=== PATIENT | female | born 1970 | race American Indian/Alaskan Native ===

== ENCOUNTER 2019-04-17 02:16 | Emergency (ER) | payer OTHER ==
[2019-04-17 02:28] VITALS: BP 146/71
[2019-04-17 03:21] LABS: Basophils # (Auto) 0.1 K/mm3 (0.0-0.1); Basophils % (Auto) 1.5 % (0.0-1.8); Eosinophils % (Auto) 0.5 % (0.0-4.3); Hematocrit 34.1 % (30.3-42.9); Hemoglobin 12.1 gm/dl (10.1-14.3); Lymphocytes # (Auto) 1.2 K/mm3 (1.2-5.4); Lymphocytes % (Auto) 25.9 % (13.4-35.0); Mean Corpuscular HGB Conc 36 % (30-34); Mean Corpuscular Volume 80 fl (79-97); Monocytes # (Auto) 0.4 K/mm3 (0.0-0.8); Monocytes % (Auto) 7.8 % (0.0-7.3); Platelet Count 280 K/mm3 (140-440); Red Blood Count 4.27 M/mm3 (3.65-5.03); Red Cell Distribution Width 13.8 % (13.2-15.2)
[2019-04-17 03:34] LABS: Alanine Aminotransferase 12 units/L (7-56); Albumin 3.9 g/dL (3.9-5); BUN/Creatinine Ratio 10; Blood Urea Nitrogen 9 mg/dL (7-17); Calcium 9.2 mg/dL (8.4-10.2); Hemolysis Index 23
[2019-04-17 04:35] LABS: Bilirubin,Urine NEG (Negative); Blood,Urine NEG (Negative); Color,Urine Yellow (Yellow); Mucus,Urine 2+ /HPF; Protein,Urine <15 mg/dL mg/dL (Negative)
--- NOTE | 2019-04-17 08:00 | Emergency Department Report ---
ED Abdominal Pain HPI - General Chief Complaint: Abdominal Pain Stated Complaint: RT SIDE PAIN Time Seen by Provider: 04/17/19 07:37 Source: patient Mode of arrival: Ambulatory Limitations: No Limitations - History of Present Illness Initial Comments: This is a 48-year-old -[place]one[place] female who presents to the emergency room with right flank pain since 1600 yesterday. Past medical history of diabetes type 2, epilepsy, and hypertension. Patient reports right flank pain is worse with inhalation. She denies recent injury, chills, urinary frequency, urgency, dysuria, vaginal discharge, nausea, vomiting, and diarrhea. MD Complaint: flank pain (right) Onset/Timin -: days(s) Location: R flank Radiation: none Migration to: no migration Severity scale (0 -10): 7 Quality: stabbing Consistency: intermittent Improves With: nothing Worsens With: movement, other (inhalation) Associated Symptoms: denies other symptoms - Related Data Previous Rx's Medication Instructions Recorded Last Taken Type glyBURIDE/METFORMIN HCL 1 tab PO BID #60 tablet 02/17/13 11/05/14 Rx [Glucovance 5-500 mg] HYDROcodone/APAP 5-325 [[place] 1 each PO Q6HR PRN #12 tablet 11/06/14 Unknown Rx 5/325] Penicillin Vk [Veetids TAB] 500 mg PO QID #40 tablet 11/06/14 Unknown Rx traMADoL [Ultram 50 MG tab] 50 mg PO Q6HR PRN #15 tablet 06/29/15 Unknown Rx Allergies Allergy/AdvReac Type Severity Reaction Status Date / Time No Known Allergies Allergy Verified 02/16/13 17:48 ED Review of Systems ROS: Stated complaint: RT SIDE PAIN Other details as noted in HPI Constitutional: denies: chills, fever Respiratory: denies: cough, shortness of breath, wheezing Cardiovascular: denies: chest pain, palpitations Gastrointestinal: denies: nausea, vomiting, diarrhea Musculoskeletal: back pain (right flank pain). denies: joint swelling, arthralgia Skin: denies: rash, lesions Neurological: denies: headache, weakness, paresthesias Psychiatric: denies: anxiety, depression ED Past Medical Hx - Past Medical History Previous Medical History?: Yes Hx Hypertension: Yes Hx Diabetes: Yes Hx Headaches / Migraines: Yes Hx Seizures: Yes (as a child) - Surgical History Past Surgical History?: Yes Additional Surgical History: partial Hysterectomy 2005 - Social History Smoking Status: Never Smoker Substance Use Type: Alcohol - Medications Home Medications: Home Medications Medication Instructions Recorded Confirmed Last Taken Type glyBURIDE/METFORMIN HCL 1 tab PO BID #60 tablet 02/17/13 11/05/14 11/05/14 Rx [Glucovance 5-500 mg] HYDROcodone/APAP 5-325 [[place] 1 each PO Q6HR PRN #12 tablet 11/06/14 Unknown Rx 5/325] Penicillin Vk [Veetids TAB] 500 mg PO QID #40 tablet 11/06/14 Unknown Rx traMADoL [Ultram 50 MG tab] 50 mg PO Q6HR PRN #15 tablet 06/29/15 Unknown Rx ED Physical Exam - General Limitations: No Limitations General appearance: alert, in no apparent distress, obese - Respiratory Respiratory exam: Present: normal lung sounds bilaterally. Absent: respiratory distress - Cardiovascular Cardiovascular Exam: Present: regular rate, normal rhythm. Absent: systolic murmur, diastolic murmur, rubs, gallop - GI/Abdominal GI/Abdominal exam: Present: soft, normal bowel sounds. Absent: distended, tenderness, guarding, rebound, rigid, organomegaly - Extremities Exam Extremities exam: Present: normal inspection - Back Exam Back exam: Present: full ROM, CVA tenderness (R). Absent: CVA tenderness (L), rash noted - Neurological Exam Neurological exam: Present: alert, oriented X3, normal gait - Psychiatric Psychiatric exam: Present: normal affect, normal mood - Skin Skin exam: Present: warm, dry, intact, normal color. Absent: rash ED Course Vital Signs 04/17/19 02:25 Temperature 98.9 F Pulse Rate 77 Respiratory 18 Rate Blood Pressure 146/71 O2 Sat by Pulse 99 Oximetry ED Medical Decision Making - Lab Data Result diagrams: 04/17/19 02:35 04/17/19 02:35 Lab Results 04/17/19 04/17/19 04/17/19 Range/Units 02:35 02:35 Unknown WBC 4.6 (4.5-11.0) K/mm3 RBC 4.27 (3.65-5.03) M/mm3 Hgb 12.1 (10.1-14.3) gm/dl Hct 34.1 (30.3-42.9) % MCV 80 (79-97) fl MCH 28 (28-32) pg MCHC 36 H (30-34) % RDW 13.8 (13.2-15.2) % Plt Count 280 (140-440) K/mm3 Lymph % (Auto) 25.9 (13.4-35.0) % [place] % (Auto) 7.8 H (0.0-7.3) % Eos % (Auto) 0.5 (0.0-4.3) % Baso % (Auto) 1.5 (0.0-1.8) % Lymph # 1.2 (1.2-5.4) K/mm3 [place] # 0.4 (0.0-0.8) K/mm3 Eos # 0.0 (0.0-0.4) K/mm3 Baso # 0.1 (0.0-0.1) K/mm3 Seg Neutrophils % 64.3 (40.0-70.0) % Seg Neutrophils # 2.9 (1.8-7.7) K/mm3 Sodium 141 (137-145) mmol/L Potassium 3.6 (3.6-5.0) mmol/L Chloride 103.1 (98-107) mmol/L Carbon Dioxide 23 (22-30) mmol/L Anion Gap 19 mmol/L BUN 9 (7-17) mg/dL Creatinine 0.9 (0.7-1.2) mg/dL Estimated GFR > 60 ml/min BUN/Creatinine Ratio 10 % Glucose 246 H (65-100) mg/dL Calcium 9.2 (8.4-10.2) mg/dL Total Bilirubin 0.20 (0.1-1.2) mg/dL AST 13 (5-40) units/L ALT 12 (7-56) units/L Alkaline Phosphatase 85 (35-129) units/L Total Protein 8.0 (6.3-8.2) g/dL Albumin 3.9 (3.9-5) g/dL Albumin/Globulin Ratio 1.0 % Urine Color Yellow (Yellow) Urine Turbidity Slightly-cloudy (Clear) Urine pH 5.0 (5.0-7.0) Ur Specific [place] 1.026 (1.003-1.030) Urine Protein <15 mg/dl (Negative) mg/dL Urine Glucose (UA) Neg (Negative) mg/dL Urine Ketones Neg (Negative) mg/dL Urine Blood Neg (Negative) Urine Nitrite Neg (Negative) Urine Bilirubin Neg (Negative) Urine Urobilinogen 2.0 (<2.0) mg/dL Ur Leukocyte Esterase Neg (Negative) Urine WBC (Auto) 1.0 (0.0-6.0) /HPF Urine RBC (Auto) 1.0 (0.0-6.0) /HPF U Epithel Cells (Auto) 10.0 (0-13.0) /HPF Urine Mucus 2+ /HPF - Radiology Data Radiology results: report reviewed CT ABDOMEN AND PELVIS WITHOUT CONTRAST HISTORY: Right flank pain. COMPARISON: No relevant comparison imaging. TECHNIQUE: Routine abdominal and pelvic CT exam performed without contrast. Lack of intravenous contrast limits evaluation of the vascular and solid organs.. All CT scans at this location are performed using CT dose reduction for ALARA by means of automated exposure control. FINDINGS: CT ABDOMEN: Lung Bases: No significant abnormality. Liver: No significant abnormality. Biliary: No significant abnormality. Spleen: No significant abnormality. Unenlarged. Pancreas: No significant abnormality. Adrenals: No significant abnormality. Kidneys: No urinary calculus. The renal collecting systems and ureters are nondilated. A 1.9 cm right upper pole renal cyst and a 1.0 cm left lower pole renal cyst. No perinephric stranding or perinephric fluid. Lymphatics: No lymphadenopathy. Vasculature: No significant abnormality. Bowel/Peritoneum: A small supraumbilical ventral hernia with a loop of small bowel extending through a 2.3 cm abdominal wall defect. The defect is approximately 1 cm superior to the umbilicus. No evidence of bowel obstruction or strangulation. No free air. No free fluid. Normal appendix. CT PELVIC: : No significant abnormality. Status post hysterectomy. Ovaries are not identified. Lymphatics: No lymphadenopathy. Osseous Structures: No aggressive appearing osseous lesions. Additional Findings: None IMPRESSION: 1. A small supraumbilical ventral hernia containing a knuckle of small bowel. No evidence of bowel strangulation or bowel obstruction. 2. No urinary calculus. 3. Bilateral benign renal cysts. 4. Status post total abdominal hysterectomy. - Medical Decision Making This is a 48 y.o. female that presents with right flank pain. Patient is stable and was examined by me. Vitals stable. Obtained CMP, CBC, UA, and CT of abdomen and pelvis. All labs are unremarkable. CT of abdomen and pelvis findings of 1. A small supraumbilical ventral hernia containing a knuckle of small bowel. No evidence of bowel strangulation or bowel obstruction. 2. No urinary calculus. 3. Bilateral benign renal cysts. 4. Status post total abdominal hysterectomy. 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 Discussed plan with patient and agreed to plan. No further questions noted by the patient. Discharged home in stable condition. Given strict return instructions. Follow up with PCP in 2-3 days. Critical care attestation.: If time is entered above; I have spent that time in minutes in the direct care of this critically ill patient, excluding procedure time. ED Disposition Clinical Impression: Acute right flank pain, Supraumbilical hernia without gangrene and without obstruction Disposition: TO HOME OR SELFCARE Is pt being admited?: No Condition: Stable Instructions: Abdominal Pain (ED), Umbilical Hernia (ED) Referrals: [facility] [Provider Group] - 3-5 Days ALEM WONG DO [Staff Physician] - 3-5 Days KAYCE PEREZ MD [Staff Physician] - 3-5 Days [facility] [Outside] - 3-5 Days Forms: Work/School Release Form(ED) Time of Disposition: 09:42
--- NOTE | 2019-04-17 08:36 | Cat Scan Report ---
CT ABDOMEN AND PELVIS WITHOUT CONTRAST HISTORY: Right flank pain. COMPARISON: No relevant comparison imaging. TECHNIQUE: Routine abdominal and pelvic CT exam performed without contrast. Lack of intravenous cont rast limits evaluation of the vascular and solid organs.. All CT scans at this location are performed using CT dose reduction for ALARA by means of automated exposure control. FINDINGS: CT ABDOMEN: Lung Bases: No significant abnormality. Liver: No significant abnormality. Biliary: No significant abnormality. Spleen: No significant abnormality. Unenlarged. Pancreas: No significant abnormality. Adrenals: No significant abnormality. Kidneys: No urinary calculus. The renal collecting systems and ureters are nondilated. A 1.9 cm right upper pole renal cyst and a 1.0 cm left lower pole renal cyst. No perinephric stranding or perinephr ic fluid. Lymphatics: No lymphadenopathy. Vasculature: No significant abnormality. Bowel/Peritoneum: A small supraumbilical ventral hernia with a loop of small bowel extending through a 2.3 cm abdominal wall defect. The defect is approximately 1 cm superior to the umbilicus. No eviden ce of bowel obstruction or strangulation. No free air. No free fluid. Normal appendix. CT PELVIC: : No significant abnormality. Status post hysterectomy. Ovaries are not identified. Lymphatics: No lymphadenopathy. Osseous Structures: No aggressive appearing osseous lesions. Additional Findings: None IMPRESSION: 1. A small supraumbilical ventral hernia containing a knuckle of small bowel. No evidence of bowel st rangulation or bowel obstruction. 2. No urinary calculus. 3. Bilateral benign renal cysts. 4. Status post total abdominal hysterectomy. Signer Name: Samy Landry MD Signed: 04/17/2019 8:31 AM Workstation Name: [id number]
== END 2019-04-17 09:55 | disposition home or self-care (01) ==
LOC: ED 02:16
DX: K43.9 Ventral hernia without obstruction or gangrene (principal); I10 Essential (primary) hypertension; E11.9 Type 2 diabetes mellitus without complications; G43.909 Migraine, unspecified, not intractable, without status migrainosus; Z90.710 Acquired absence of both cervix and uterus; Z79.899 Other long term (current) drug therapy
CPT/HCPCS: 36415; 74176; 80053; 81001; 85025

== ENCOUNTER 2021-02-21 09:08 | Emergency (ER) | payer OTHER ==
[2021-02-21 11:09] VITALS: BP 142/62
--- NOTE | 2021-02-21 11:25 | Emergency Department Report ---
ED General Adult HPI - General Chief complaint: Sore Throat Stated complaint: FLU SX'S Time Seen by Provider: 02/21/21 11:03 Source: patient Mode of arrival: Ambulatory Limitations: Physical Limitation - History of Present Illness Initial comments: 50-year-old -Guyanese female patient with past medical history of diabetes presents with complaints of itchy throat, congestion, runny nose, and mild cough for the past week. She states she has not tried any OTC medications for symptoms. She denies any hemoptysis/productive cough, chest pain, fev er/chills/sweats, loss of taste or smell. She does admit to recent contact with a friend who has pneumonia. Patient states she had Covid in October of this year and has had 1 dose of her vaccine. Severity scale (0 -10): 0 - Related Data Home Medications Medication Instructions Recorded Confirmed Last Taken amLODIPine 10 mg PO QDAY 02/21/21 02/21/21 Unknown glipiZIDE [Glucotrol] 5 mg PO QDAY 02/21/21 02/21/21 Unknown Previous Rx's Medication Instructions Recorded Last Taken Type glyBURIDE/METFORMIN HCL 1 tab PO BID #60 tablet 02/17/13 11/05/14 Rx [Glucovance 5-500 mg] HYDROcodone/APAP 5-325 [[place] 1 each PO Q6HR PRN #12 tablet 11/06/14 Unknown Rx 5/325] Penicillin Vk [Veetids TAB] 500 mg PO QID #40 tablet 11/06/14 Unknown Rx traMADoL [Ultram 50 MG tab] 50 mg PO Q6HR PRN #15 tablet 06/29/15 Unknown Rx Cyclobenzaprine [Flexeril] 10 mg PO QHS PRN #10 tablet 08/20/19 Unknown Rx Naproxen 500 mg PO Q12H PRN #20 tablet 08/20/19 Unknown Rx Levocetirizine Dihydrochloride 5 mg PO QPM 10 Days #10 tablet 02/21/21 Unknown Rx [Xyzal] Allergies Allergy/AdvReac Type Severity Reaction Status Date / Time No Known Allergies Allergy Verified 02/21/21 09:26 ED Review of Systems ROS: Stated complaint: FLU SX'S Other details as noted in HPI Constitutional: denies: chills, fever ENT: congestion. denies: throat pain Respiratory: cough. denies: shortness of breath Cardiovascular: denies: chest pain Hematological/Lymphatic: denies: swollen glands ED Past Medical Hx - Past Medical History Hx Hypertension: Yes Hx Diabetes: Yes Hx Headaches / Migraines: Yes Hx Seizures: Yes (as a child) - Surgical History Additional Surgical History: partial Hysterectomy 2005, BILATERAL KNEE REPLACEM ENTS - Social History Smoking Status: Never Smoker Substance Use Type: None - Medications Home Medications: Home Medications Medication Instructions Recorded Confirmed Last Taken Type glyBURIDE/METFORMIN HCL 1 tab PO BID #60 tablet 02/17/13 02/21/21 11/05/14 Rx [Glucovance 5-500 mg] HYDROcodone/APAP 5-325 [[place] 1 each PO Q6HR PRN #12 tablet 11/06/14 02/21/21 Unknown Rx 5/325] Penicillin Vk [Veetids TAB] 500 mg PO QID #40 tablet 11/06/14 02/21/21 Unknown Rx traMADoL [Ultram 50 MG tab] 50 mg PO Q6HR PRN #15 tablet 06/29/15 02/21/21 Unknown Rx Cyclobenzaprine [Flexeril] 10 mg PO QHS PRN #10 tablet 08/20/19 02/21/21 Unknown Rx Naproxen 500 mg PO Q12H PRN #20 tablet 08/20/19 02/21/21 Unknown Rx Levocetirizine Dihydrochloride 5 mg PO QPM 10 Days #10 tablet 02/21/21 Unknown Rx [Xyzal] amLODIPine 10 mg PO QDAY 02/21/21 02/21/21 Unknown History glipiZIDE [Glucotrol] 5 mg PO QDAY 02/21/21 02/21/21 Unknown History ED Physical Exam - General Limitations: Physical Limitation General appearance: alert, in no apparent distress - Head Head exam: Present: atraumatic, normocephalic - Eye Eye exam: Present: normal appearance. Absent: scleral icterus - ENT ENT exam: Present: normal exam, normal orophraynx - Neck Neck exam: Present: normal inspection. Absent: lymphadenopathy - Respiratory Respiratory exam: Present: normal lung sounds bilaterally. Absent: respiratory distress - Cardiovascular Cardiovascular Exam: Present: regular rate, normal rhythm - Neurological Exam Neurological exam: Present: alert, oriented X3, normal gait - Psychiatric Psychiatric exam: Present: normal affect, normal mood - Skin Skin exam: Present: warm, dry, intact, normal color. Absent: rash ED Course Vital Signs 02/21/21 02/21/21 02/21/21 09:30 11:05 11:07 Temperature 99.1 F 98.1 F 98.1 F Pulse Rate 92 H 74 74 Respiratory 20 16 16 Rate Blood Pressure 115/73 142/62 Blood Pressure 142/62 [Right] O2 Sat by Pulse 98 100 100 Oximetry ED Medical Decision Making - Radiology Data Radiology results: report reviewed CHEST 2 VIEWS INDICATION / CLINICAL INFORMATION: cough. COMPARISON: 09/07/2019 FINDINGS: SUPPORT DEVICES: None. HEART / MEDIASTINUM: No significant abnormality. LUNGS / PLEURA: No significant pulmonary or pleural abnormality. No pneumothorax. ADDITIONAL FINDINGS: No significant additional findings. IMPRESSION: 1. No acute findings. - Medical Decision Making 50-year-old -Guyanese female patient with past medical history of diabetes presents with complaints of itchy throat, congestion, runny nose, and mild cough for the past week. She states she has not tried any OTC medications for symptoms. She denies any hemoptysis/productive cough, chest pain, fever/chills/sweats, loss of taste or smell. She does admit to recent contact with a friend who has pneumonia. Patient states she had Covid in October of this year and has had 1 dose of her vaccine. Chest x-ray is normal. Symptoms are not consistent with viral syndrome. Will treat symptomatically for now. Recommend patient follows up within 24 to 48 hours for COVID-19 testing and self quarantine's until her results are back. She is otherwise well-appearing, her vitals are normal, she is stable for dis charge home. Strict return precautions were discussed in detail with patient who verbalized understanding. Critical care attestation.: If time is entered above; I have spent that time in minutes in the direct care of this critically ill patient, excluding procedure time. ED Disposition Clinical Impression: Viral URI with cough Disposition: HOME / SELF CARE / HOMELESS Is pt being admited?: No Condition: Stable Instructions: Viral Respiratory Infection, [id number] Prescriptions: Levocetirizine Dihydrochloride [Xyzal] 5 mg PO QPM 10 Days #10 tablet Referrals: PRIMARY CARE, [Primary Care Provider] - 3-5 Days Forms: Work/School Release Form(ED)
--- NOTE | 2021-02-21 11:47 | XRay Report ---
CHEST 2 VIEWS INDICATION / CLINICAL INFORMATION: cough. COMPARISON: 09/07/2019 FINDINGS: SUPPORT DEVICES: None. HEART / MEDIASTINUM: No significant abnormality. LUNGS / PLEURA: No significant pulmonary or pleural abnormality. No pneumothorax. ADDITIONAL FINDINGS: No significant additional findings. IMPRESSION: 1. No acute findings. Signer Name: Nick Gonzalez MD Signed: 02/21/2021 11:42 AM Workstation Name: [id number]
== END 2021-02-21 12:11 | disposition home or self-care (01) ==
LOC: ED 09:08
DX: J06.9 Acute upper respiratory infection, unspecified (principal); R05.9 Cough, unspecified; I10 Essential (primary) hypertension; E11.8 Type 2 diabetes mellitus with unspecified complications
CPT/HCPCS: 71046; 99283